=== PATIENT | male | born 1965 | race African-American/Black ===

== ENCOUNTER 2023-06-20 09:47 | Emergency (ER) | payer SELFPAY ==
[~2023-06-20] VITALS: Ht 172.7 cm; Wt 75.3 kg
[2023-06-20] MEDS ORDERED: cholesterol med PO (11:34)
[2023-06-20] MEDS ORDERED: METF-838 PO (11:34)
[2023-06-20] MEDS ORDERED: HumuLIN R (REGULAR) INSULIN (NovoLIN R) **100U/ML** PER UNIT IV ONE (12:40)
[2023-06-20] MEDS ORDERED: NS 1,000 ML IV ONE (12:40)
[2023-06-20 13:53] VITALS: BP 142/96; TEMP 97.3; O2SAT 100
== END 2023-06-20 13:56 | disposition home or self-care (01) ==
LOC: M ED 09:47
DX: E11.65 Type 2 diabetes mellitus with hyperglycemia (principal); Z79.84 Long term (current) use of oral hypoglycemic drugs; Z79.899 Other long term (current) drug therapy
CPT/HCPCS: 96361; 96374; 99284; J1815